=== PATIENT | male | born 1990 | race Caucasian/White ===

== ENCOUNTER 2018-07-04 20:59 | Emergency (ER) | payer OTHER ==
--- NOTE | 2018-07-04 21:43 | EDM.PDOC ---
ED HPI GENERAL MEDICAL PROBLEM - General Chief Complaint: Respiratory Problem Stated Complaint: PT HAS ASTHMA Time Seen by Provider: 07/04/18 21:02 - History of Present Illness INITIAL COMMENTS - FREE TEXT/NARRATIVE: HISTORY AND PHYSICAL: History of present illness: The patient is a 27-year-old male with a known history of asthma and uses Advair as preventative and Pro-air for rescue as well as a nebulizer machine at home and presents stating these out of his medications for last 24 hours and he is having asthma wheezing. The patient says that he still smokes cigarettes and has been seen in our clinic in the past but has not reconnected as his provider as left. He has had a recent upper respiratory tract infection and says that that is improving and does not want evaluation for that. He has not had recent fevers chills nausea or vomiting and has no abdominal complaints. He has no chest pain and no shortness of breath but just feels like his asthma is flaring up and he does not have any inhalers. The patient cannot recall the last time that he used steroids Review of systems: As per history of present illness and below otherwise all systems reviewed and negative. Past medical history: As per history of present illness and as reviewed below otherwise noncontributory. Surgical history: As per history of present illness and as reviewed below otherwise noncontributory. Social history: No reported history of drug or alcohol abuse. Family history: As per history of present illness and as reviewed below otherwise noncontributory. Physical exam: General: Well-developed well-nourished overweight man who is nontoxic and vital signs are noted by me HEENT: Atraumatic, normocephalic, pupils reactive, negative for conjunctival pallor or scleral icterus, mucous membranes moist, throat clear, neck supple, nontender, trachea midline. Lungs: Clear to auscultation expiratory wheezing throughout all rivera with no work of breathing or stridor, breath sounds equal bilaterally, chest nontender. Heart: S1S2, regular rate and rhythm no overt murmurs Abdomen: Deferred. Pelvis: Deferred Genitourinary: Deferred. Rectal: Deferred. Extremities: Atraumatic, full range of motion without defects or deficits. Neurovascular unremarkable. Neuro: Awake, alert, oriented. Cranial nerves II through XII unremarkable. Cerebellum unremarkable. Motor and sensory unremarkable throughout. Exam nonfocal. Diagnostics: He was offered testing for his recent upper respiratory tract infection and declines Therapeutics: Patient was offered nebulizer treatment and a spacer here and he refuses; he is requesting a new nebulizer machine and I will contact [employer] to help assist him with that. He says he would like prescriptions for his Advair and rescue inhaler and I told him I'll also give him prednisone. He says he has the nebulizer medicine at home and does not need any. It was stressed to him that he needs to try to reduce and/or quit smoking as well as to follow-up. He understands my concerns about his O2 sat at 91% and still declines treatment here Impression: Acute asthma exacerbation requesting med refill Definitive disposition and diagnosis as appropriate pending reevaluation and review of above. - Related Data Allergies Allergy/AdvReac Type Severity Reaction Status Date / Time No Known Allergies Allergy Verified 07/04/18 21:30 Home Meds: Home Meds Albuterol Sulfate [Proair Hfa] 2 puff INH ASDIRECTED PRN 04/15/16 [History] Fluticasone/Salmeterol [Advair 250-50 Diskus] 1 puff IH DAILY 04/15/16 [History] Past Medical History Respiratory History: Reports: Asthma - Past Surgical History HEENT Surgical History: Reports: Tonsillectomy Social & Family History - Family History Family Medical History: Noncontributory Respiratory: Reports: Asthma Endocrine/Metabolic: Reports: Diabetes, type II - Tobacco Use Smoking Status *Q: Current Every Day Smoker Years of Tobacco use: 3 Packs/Tins Daily: 1 ED ROS GENERAL - Review of Systems Review Of Systems: ROS reveals no pertinent complaints other than HPI. ED EXAM, GENERAL - Physical Exam Exam: See Below (see dictation) Course - Vital Signs Last Recorded V/S: Last Vital Signs Temp 36.2 C 07/04/18 21:25 Pulse 90 07/04/18 21:25 Resp 18 07/04/18 21:25 BP 186/100 H 07/04/18 21:25 Pulse Ox 91 L 07/04/18 21:25 Departure - Departure Time of Disposition: 21:41 Disposition: Home, Self-Care 01 Condition: Good Clinical Impression: Acute asthma, Encounter for medication refill - Discharge Information Referrals: PCP,None [Primary Care Provider] - Additional Instructions: The following information is given to patients seen in the emergency department who are being discharged to home. This information is to outline your options for follow-up care. We provide all patients seen in our emergency department with a follow-up referral. The need for follow-up, as well as the timing and circumstances, are variable depending upon the specifics of your emergency department visit. If you don't have a primary care physician on staff, we will provide you with a referral. We always advise you to contact your personal physician following an emergency department visit to inform them of the circumstance of the visit and for follow-up with them and/or the need for any referrals to a consulting specialist. The emergency department will also refer you to a specialist when appropriate. This referral assures that you have the opportunity for followup care with a specialist. All of these measure are taken in an effort to provide you with optimal care, which includes your followup. Under all circumstances we always encourage you to contact your private physician who remains a resource for coordinating your care. When calling for followup care, please make the office aware that this follow-up is from your recent emergency room visit. If for any reason you are refused follow-up, please contact the [facility] emergency department at and ask to speak to the emergency department charge nurse. [facility] Primary care- Internal Medicine and Family [address] [address] Please use your rescue inhaler albuterol as prescribed via [facility] and also fill the prescription you have been given for your Advair. Take the prednisone you have been given via [facility] and start with the first dose tonight. Go pharmacy picking technician her nebulizer machine per instructions from nursing from [facility] and use it when you're at home. Please push hydration and reduce and/or quit smoking as we discussed. Call and schedule a follow-up appointment in the clinic in the next few days and return to ER as needed and as discussed.
[2018-07-04 21:58] VITALS: BP 128/73
== END 2018-07-04 21:55 | disposition home or self-care (01) ==
LOC: MW.ED 20:59
DX: J45.901 Unspecified asthma with (acute) exacerbation (principal); E11.9 Type 2 diabetes mellitus without complications; F17.210 Nicotine dependence, cigarettes, uncomplicated; Z79.899 Other long term (current) drug therapy
CPT/HCPCS: 99284

== ENCOUNTER 2018-07-26 05:16 | Emergency (ER) | payer OTHER ==
[2018-07-26] MEDS ORDERED: Albuterol/Ipratropium 3.0-0.5 MG/3 ML Neb Soln NEB ONE ×2 (05:20→05:48)
[2018-07-26] MEDS ORDERED: methylPREDNISolone Sodium Succinate 125 MG/2 ML SDV IM ONE (05:21)
--- NOTE | 2018-07-26 05:30 | EDM.PDOC ---
ED HPI GENERAL MEDICAL PROBLEM - General Chief Complaint: Respiratory Problem Stated Complaint: ASTHMA ATTACK Time Seen by Provider: 07/26/18 05:23 Source of Information: Reports: Patient History Limitations: Reports: No Limitations - History of Present Illness INITIAL COMMENTS - FREE TEXT/NARRATIVE: HISTORY AND PHYSICAL: History of present illness: 27-year-old male presenting to emergency department with chief complaint of shortness of breath starting this evening with past medical history of asthma. Patient states that approximately 1 hour ago he became significant short of breath with coughing. States that he does take a normal daily Advair as well as pro-air but has been out of the medication. States that he did try to call the clinic and get an appointment but they stated that they were unable to get any an early appointment. Up until this evening he been feeling his normal usual self and denies any fever, chills, nausea, vomiting, abdominal pain, chest pain , or other signs of systemic infection. Patient has no other medical conditions other than asthma and has no known medical allergies. On exam patient has decreased breath sounds throughout with generalized wheezing. Patient given 1 DuoNeb. After DuoNeb improved air movement noted however some decreased airflow still. Wheezing has improved. Patient given 125 mg IM Solu-Medrol Another DuoNeb ordered. Review of systems: As per history of present illness and below otherwise all systems reviewed and negative. Past medical history: As per history of present illness and as reviewed below otherwise noncontributory. Surgical history: As per history of present illness and as reviewed below otherwise noncontributory. Social history: No reported history of drug or alcohol abuse. Family history: As per history of present illness and as reviewed below otherwise noncontributory. Physical exam: HEENT: Atraumatic, normocephalic, pupils reactive, negative for conjunctival pallor or scleral icterus, mucous membranes moist, throat clear, neck supple, nontender, trachea midline. Lungs: Decreased breath sounds heard throughout with some generalized wheezing, breath sounds equal bilaterally, chest nontender. Heart: S1S2, regular, negative for clicks, rubs, or JVD. Abdomen: Soft, nondistended, nontender. Negative for masses or hepatosplenomegaly. Negative for costovertebral tenderness. Pelvis: Stable nontender. Genitourinary: Deferred. Rectal: Deferred. Extremities: Atraumatic, negative for cords or calf pain. Neurovascular unremarkable. Neuro: Awake, alert, oriented. Cranial nerves II through XII unremarkable. Cerebellum unremarkable. Motor and sensory unremarkable throughout. Exam nonfocal. Diagnostics: Patient refused radiological or labs. Therapeutics: DuoNeb 2, 125 mg Solu-Medrol, prednisone 40 mg by mouth daily 5 days, Advair 250/50, pro-air Impression: Shortness of breath Acute asthma exacerbation Plan: Patient had significant improvement after 2 DuoNeb's as well as Solu-Medrol. He was discharged in good condition with a prescription for prednisone 40 mg by mouth daily 5 days, Advair 250, and pro-air. He was instructed to follow-up with his primary care provider and return to emergency department if he had a new or worsening symptoms. Definitive disposition and diagnosis as appropriate pending reevaluation and review of above. - Related Data Allergies Allergy/AdvReac Type Severity Reaction Status Date / Time No Known Allergies Allergy Verified 07/26/18 05:20 Home Meds: Home Meds Albuterol Sulfate [Proair Hfa] 2 puff INH ASDIRECTED PRN 04/15/16 [History] Fluticasone/Salmeterol [Advair 250-50 Diskus] 1 puff IH DAILY 04/15/16 [History] Albuterol Sulfate [Proair Hfa] 8.5 gm IH ONCALL PRN #1 [email or web address] 07/26/18 [Rx] Fluticasone/Salmeterol [Advair 250-50] 1 puff INH BID #1 diskus 07/26/18 [Rx] predniSONE [Prednisone] 20 mg PO DAILY #10 tablet 07/26/18 [Rx] Past Medical History Respiratory History: Reports: Asthma - Past Surgical History HEENT Surgical History: Reports: Tonsillectomy Social & Family History - Family History Family Medical History: Noncontributory Respiratory: Reports: Asthma Endocrine/Metabolic: Reports: Diabetes, type II ED ROS GENERAL - Review of Systems Review Of Systems: ROS reveals no pertinent complaints other than HPI. ED EXAM, GENERAL - Physical Exam Exam: See Below Course - Vital Signs Last Recorded V/S: Last Vital Signs Temp 97.6 F 07/26/18 05:21 Pulse 88 07/26/18 05:21 Resp 24 H 07/26/18 05:21 BP 124/76 07/26/18 05:21 Pulse Ox 91 L 07/26/18 05:21 - Orders/Labs/Meds Orders: Active Orders 24 hr Category Date Time Status RT Aerosol Therapy [RC] ASDIRECTED Care 07/26/18 05:20 Active RT Aerosol Therapy [RC] ASDIRECTED Care 07/26/18 05:48 Ordered Albuterol/Ipratropium [DuoNeb 3.0-0.5 MG/3 ML] Med 07/26/18 05:48 Once 3 ml NEB ONETIME ONE Meds: Medications Discontinued Medications Generic Name Dose Route Start Last Admin Trade Name Freq PRN Reason Stop Dose Admin Albuterol/Ipratropium 3 ml 07/26/18 05:20 07/26/18 05:26 Duoneb 3.0-0.5 Mg/3 Ml NEB 07/26/18 05:21 3 ml ONETIME ONE Administration Methylprednisolone Sodium Succinate 125 mg 07/26/18 05:21 07/26/18 05:26 Solu-Medrol IM 07/26/18 05:22 125 mg ONETIME ONE Administration Departure - Departure Time of Disposition: 05:52 Disposition: Home, Self-Care 01 Condition: Good Clinical Impression: Shortness of breath Asthma exacerbation Qualifiers: Asthma severity: mild Asthma persistence: intermittent Qualified Code(s): J45.21 - Mild intermittent asthma with (acute) exacerbation - Discharge Information *PRESCRIPTION DRUG MONITORING PROGRAM REVIEWED*: Not Applicable *COPY OF PRESCRIPTION DRUG MONITORING REPORT IN PATIENT DAMIEN: Not Applicable Prescriptions: Albuterol Sulfate [Proair Hfa] 8.5 gm IH ONCALL PRN #1 [email or web address] PRN Reason: Shortness Of Breath Fluticasone/Salmeterol [Advair 250-50] 1 puff INH BID #1 diskus predniSONE [Prednisone] 20 mg PO DAILY #10 tablet Referrals: PCP,None [Primary Care Provider] - Forms: ED Department Discharge Additional Instructions: My general discharge The following information is given to patients seen in the emergency department who are being discharged to home. This information is to outline your options for follow-up care. We provide all patients seen in our emergency department with a follow-up referral. The need for follow-up, as well as the timing and circumstances, are variable depending upon the specifics of your emergency department visit. If you don't have a primary care physician on staff, we will provide you with a referral. We always advise you to contact your personal physician following an emergency department visit to inform them of the circumstance of the visit and for follow-up with them and/or the need for any referrals to a consulting specialist. The emergency department will also refer you to a specialist when appropriate. This referral assures that you have the opportunity for follow-up care with a specialist. All of these measure are taken in an effort to provide you with optimal care, which includes your follow-up. Under all circumstances we always encourage you to contact your private physician who remains a resource for coordinating your care. When calling for follow-up care, please make the office aware that this follow-up is from your recent emergency room visit. If for any reason you are refused follow-up, please contact the [facility] Emergency Department at and asked to speak to the emergency department charge nurse. [facility] [address] [place] [id number] Please follow-up with primary care provider. Be sure to tell them that you were seen in the emergency department and they wish for you to be seen as soon as possible. Take medication as prescribed. It has been sent to [place] [facility] Return to emergency department if any new or worsening symptoms. - My Orders Last 24 Hours: My Active Orders 07/26/18 05:20 RT Aerosol Therapy [RC] ASDIRECTED 07/26/18 05:48 RT Aerosol Therapy [RC] ASDIRECTED Albuterol/Ipratropium [DuoNeb 3.0-0.5 MG/3 ML] 3 ml NEB ONETIME ONE - Assessment/Plan Last 24 Hours: My Active Orders 07/26/18 05:20 RT Aerosol Therapy [RC] ASDIRECTED 07/26/18 05:48 RT Aerosol Therapy [RC] ASDIRECTED Albuterol/Ipratropium [DuoNeb 3.0-0.5 MG/3 ML] 3 ml NEB ONETIME ONE
[2018-07-26 06:26] VITALS: BP 130/65
== END 2018-07-26 06:24 | disposition home or self-care (01) ==
LOC: MW.ED 05:16
DX: J45.21 Mild intermittent asthma with (acute) exacerbation (principal); F17.210 Nicotine dependence, cigarettes, uncomplicated; Z79.899 Other long term (current) drug therapy
CPT/HCPCS: 94640; 96372; 99284; J2930; J7620-GY

== ENCOUNTER 2019-07-05 03:46 | Emergency (ER) | payer OTHER ==
[2019-07-05] MEDS ORDERED: Albuterol/Ipratropium 3.0-0.5 MG/3 ML Neb Soln ONE (03:57)
[2019-07-05] MEDS ORDERED: Albuterol/Ipratropium 3.0-0.5 MG/3 ML Neb Soln NEB ONE (03:59)
[2019-07-05] MEDS ORDERED: Sodium Chloride 0.9% 10 ML Syringe FLUSH PRN (04:02)
[2019-07-05] MEDS ORDERED: Sodium Chloride 0.9% 1,000 ML IV ONE (04:02)
[2019-07-05] MEDS ORDERED: Sodium Chloride 0.9% 2.5 ML Syringe FLUSH PRN (04:02)
[2019-07-05] MEDS ORDERED: methylPREDNISolone Sodium Succinate 125 MG/2 ML SDV IVPUSH ONE (04:02)
--- NOTE | 2019-07-05 04:06 | EDM.PDOC ---
ED HPI GENERAL MEDICAL PROBLEM - General Chief Complaint: Respiratory Problem Stated Complaint: ASTHMA, COLD Time Seen by Provider: 07/05/19 03:50 - History of Present Illness INITIAL COMMENTS - FREE TEXT/NARRATIVE: HISTORY AND PHYSICAL: History of present illness: The patient is a 28 y/o male who has been here in the past in our emergency department last year for asthma exacerbations and who says that his last exacerbation was one month ago, for which he went to a different ER and was treated, and who presents tonight with 3 days of wheezing shortness of breath and cough productive of phlegm. He says that he is always wheezy but it is been worse the last 3 days and has been associated with this upper respiratory infection. He's not had fevers chills nausea or vomiting until this morning when he had some vomiting this morning but since that time he has been able to take fluids. He has not had a documented fever and he has no chest pain or abdominal pain but he does feel short of breath and tight. He has an albuterol inhaler and a nebulizer machine but does not use any inhaled steroids and he believes that the last time he got prednisone was one month ago or his last exacerbation. The patient is not a smoker but he is around coworkers to smoke. He also says that the weather change along with the cold may have triggered his asthma. He is eating and drinking Review of systems: As per history of present illness and below otherwise all systems reviewed and negative. Past medical history: As per history of present illness and as reviewed below otherwise noncontributory. Surgical history: As per history of present illness and as reviewed below otherwise noncontributory. Social history: No reported history of drug or alcohol abuse. Family history: As per history of present illness and as reviewed below otherwise noncontributory. Physical exam: General: Well-developed well-nourished overweight man who is nontoxic and has nasal quality to voice but is not breathless. Vital signs are noted by me HEENT: Atraumatic, normocephalic, pupils reactive, negative for conjunctival pallor or scleral icterus, mucous membranes moist, throat clear, neck supple, nontender, trachea midline. Lungs: Tight air exchange with expiratory wheezing throughout all lung rivera but no worker breathing or nasal flaring breath sounds equal bilaterally, chest nontender. Heart: S1S2, regular rate and rhythm no overt murmurs Abdomen: Soft, nondistended, nontender. NABS Pelvis: Deferred Genitourinary: Deferred. Rectal: Deferred. Extremities: Atraumatic, no edema or leg asymmetry negative for cords or calf pain. Neurovascular unremarkable. Neuro: Awake, alert, oriented. Cranial nerves II through XII unremarkable. Cerebellum unremarkable. Motor and sensory unremarkable throughout. Exam nonfocal. Diagnostics: CBC lactate influenza chest x-ray Therapeutics: IV fluids Solu-Medrol duo neb After DuoNeb patient was reevaluated and wheezing has dissipated and he is having much improved air exchange. I discussed with him all testing results and will give him some duo nebs to use it as nebulizer machine at home as well as prednisone and a Z-Jimmy. He was also given a spacer and spacer teaching. Impression: Acute asthma exacerbation with URI Definitive disposition and diagnosis as appropriate pending reevaluation and review of above. throat Pain Score (Numeric/FACES): 7 - Related Data Allergies Allergy/AdvReac Type Severity Reaction Status Date / Time No Known Allergies Allergy Verified 07/05/19 03:54 Home Meds: Home Meds Albuterol Sulfate [Albuterol Sulfate Hfa] 1 inh IH ASDIRECTED PRN 07/05/19 [ History] Past Medical History - Past Health History Medical/Surgical History: Denies Medical/Surgical History HEENT History: Reports: None Cardiovascular History: Reports: None Respiratory History: Reports: Asthma Gastrointestinal History: Reports: None Genitourinary History: Reports: None Musculoskeletal History: Reports: None Neurological History: Reports: None Psychiatric History: Reports: None Endocrine/Metabolic History: Reports: None Hematologic History: Reports: None Immunologic History: Reports: None Oncologic (Cancer) History: Reports: None Dermatologic History: Reports: None - Infectious Disease History Infectious Disease History: Reports: None - Past Surgical History HEENT Surgical History: Reports: Tonsillectomy Social & Family History - Family History Family Medical History: Noncontributory Respiratory: Reports: Asthma Endocrine/Metabolic: Reports: Diabetes, type II - Caffeine Use Caffeine Use: Reports: Coffee, Energy Drinks, Soda ED ROS GENERAL - Review of Systems Review Of Systems: ROS reveals no pertinent complaints other than HPI. ED EXAM, GENERAL - Physical Exam Exam: See Below (See dictation) Course - Vital Signs Last Recorded V/S: Last Vital Signs Temp 36.3 C 07/05/19 03:55 Pulse 106 H 07/05/19 03:55 Resp 20 07/05/19 03:55 BP 153/80 H 07/05/19 03:55 Pulse Ox 92 L 07/05/19 03:55 - Orders/Labs/Meds Orders: Active Orders 24 hr Category Date Time Status RT Aerosol Therapy [RC] ASDIRECTED Care 07/05/19 03:59 Active Sodium Chloride 0.9% [Saline Flush] Med 07/05/19 04:02 Active 10 ml FLUSH ASDIRECTED PRN Sodium Chloride 0.9% [Saline Flush] Med 07/05/19 04:02 Active 2.5 ml FLUSH ASDIRECTED PRN Saline Lock Insert [OM.PC] Stat Oth 07/05/19 04:02 Ordered Medication Orders Sodium Chloride (Saline Flush) 10 ml FLUSH ASDIRECTED PRN PRN Reason: Keep Vein Open Sodium Chloride (Saline Flush) 2.5 ml FLUSH ASDIRECTED PRN PRN Reason: Keep Vein Open Labs: Laboratory Tests 07/05/19 07/05/19 Range/Units 04:08 04:08 WBC 12.51 H (4.0-11.0) K/uL RBC 5.06 (4.50-5.90) M/uL Hgb 15.5 (13.0-17.0) g/dL Hct 45.1 (38.0-50.0) % MCV 89.1 (80.0-98.0) fL MCH 30.6 (27.0-32.0) pg MCHC 34.4 (31.0-37.0) g/dL RDW Std Deviation 43.5 (28.0-62.0) fl RDW Coeff of Flory 13 (11.0-15.0) % Plt Count 239 (150-400) K/uL MPV 10.00 (7.40-12.00) fL Neut % (Auto) 73.6 (48.0-80.0) % Lymph % (Auto) 15.2 L (16.0-40.0) % Rogers % (Auto) 6.5 (0.0-15.0) % Eos % (Auto) 4.0 (0.0-7.0) % Baso % (Auto) 0.7 (0.0-1.5) % Neut # (Auto) 9.2 H (1.4-5.7) K/uL Lymph # (Auto) 1.9 (0.6-2.4) K/uL Rogers # (Auto) 0.8 (0.0-0.8) K/uL Eos # (Auto) 0.5 (0.0-0.7) K/uL Baso # (Auto) 0.1 (0.0-0.1) K/uL Nucleated RBC % 0.0 /100WBC Nucleated RBCs # 0 K/uL Lactate 1.3 (0.20-2.00) mmol/L Meds: Medications Generic Name Dose Route Start Last Admin Trade Name Freq PRN Reason Stop Dose Admin Sodium Chloride 10 ml 07/05/19 04:02 Saline Flush FLUSH ASDIRECTED PRN Keep Vein Open Sodium Chloride 2.5 ml 07/05/19 04:02 Saline Flush FLUSH ASDIRECTED PRN Keep Vein Open Discontinued Medications Generic Name Dose Route Start Last Admin Trade Name Freq PRN Reason Stop Dose Admin Albuterol/Ipratropium Confirm 07/05/19 03:57 07/05/19 04:21 Duoneb 3.0-0.5 Mg/3 Ml Administered 07/05/19 03:58 Not Given Dose 3 ml .ROUTE .STK-MED ONE Albuterol/Ipratropium 3 ml 07/05/19 03:59 07/05/19 04:18 Duoneb 3.0-0.5 Mg/3 Ml NEB 07/05/19 04:00 3 ml ONETIME ONE Administration Sodium Chloride 1,000 mls @ 999 mls/hr 07/05/19 04:02 07/05/19 04:18 Normal Saline IV 07/05/19 05:02 999 mls/hr STAT ONE Administration Methylprednisolone Sodium Succinate 125 mg 07/05/19 04:02 07/05/19 04:17 Solu-Medrol IVPUSH 07/05/19 04:03 125 mg ONETIME ONE Administration Departure - Departure Time of Disposition: 05:07 Disposition: Home, Self-Care 01 Condition: Good Clinical Impression: Asthma exacerbation Qualifiers: Asthma severity: moderate Asthma persistence: unspecified Qualified Code(s): J45.901 - Unspecified asthma with (acute) exacerbation URI (upper respiratory infection) Qualifiers: URI type: unspecified URI Qualified Code(s): J06.9 - Acute upper respiratory infection, unspecified - Discharge Information Referrals: PCP,None [Primary Care Provider] - Forms: ED Department Discharge Additional Instructions: The following information is given to patients seen in the emergency department who are being discharged to home. This information is to outline your options for follow-up care. We provide all patients seen in our emergency department with a follow-up referral. The need for follow-up, as well as the timing and circumstances, are variable depending upon the specifics of your emergency department visit. If you don't have a primary care physician on staff, we will provide you with a referral. We always advise you to contact your personal physician following an emergency department visit to inform them of the circumstance of the visit and for follow-up with them and/or the need for any referrals to a consulting specialist. The emergency department will also refer you to a specialist when appropriate. This referral assures that you have the opportunity for followup care with a specialist. All of these measure are taken in an effort to provide you with optimal care, which includes your followup. Under all circumstances we always encourage you to contact your private physician who remains a resource for coordinating your care. When calling for followup care, please make the office aware that this follow-up is from your recent emergency room visit. If for any reason you are refused follow-up, please contact the [facility] emergency department at and ask to speak to the emergency department charge nurse. [facility]- [place] [address] Please fill the prescription you have been given for DuoNeb nebulizer treatments a Z-Ijmmy and prednisone. Continue to use your inhaler with spacer you have been given tonight 1-2 puffs every 6 hours for spastic cough wheezing and shortness of breath and when you're at home please use her nebulizer machine for better delivery.: Scheduled follow-up appointment in the clinic with one of our providers or with your provider for reevaluation further care. Push hydration and return to ER as needed and as discussed - My Orders Last 24 Hours: My Active Orders 07/05/19 03:59 RT Aerosol Therapy [RC] ASDIRECTED 07/05/19 04:02 Sodium Chloride 0.9% [Saline Flush] 10 ml FLUSH ASDIRECTED PRN Sodium Chloride 0.9% [Saline Flush] 2.5 ml FLUSH ASDIRECTED PRN Saline Lock Insert [OM.PC] Stat - Assessment/Plan Last 24 Hours: My Active Orders 07/05/19 03:59 RT Aerosol Therapy [RC] ASDIRECTED 07/05/19 04:02 Sodium Chloride 0.9% [Saline Flush] 10 ml FLUSH ASDIRECTED PRN Sodium Chloride 0.9% [Saline Flush] 2.5 ml FLUSH ASDIRECTED PRN Saline Lock Insert [OM.PC] Stat
--- NOTE | 2019-07-05 04:52 | CR ---
INDICATION: Asthma, cold, shortness of breath TECHNIQUE: Chest radiograph 2 views COMPARISON: None FINDINGS: Mediastinum: The mediastinum is normal in appearance. The heart silhouette is normal in size and morphology. Lung: Both lungs are unremarkable in appearance. No sign of pleural effusion seen. No pneumothorax is identified. IMPRESSION: 1. No acute cardiopulmonary disease is seen. Dictated by: Clyde Reid MD @ 07/05/2019 04:50:16 (Electronically Signed)
[2019-07-05 05:21] VITALS: BP 131/71; PULSE 93
== END 2019-07-05 05:22 | disposition home or self-care (01) ==
LOC: MW.ED 03:46
DX: J45.901 Unspecified asthma with (acute) exacerbation (principal); J06.9 Acute upper respiratory infection, unspecified; Z79.51 Long term (current) use of inhaled steroids; Z98.890 Other specified postprocedural states
CPT/HCPCS: 36415; 71046; 83605; 85025; 87804; 94640; 96361; 96374; 99283; J2930; J7040; J7620-GY